=== PATIENT | male | born 1995 | race Caucasian/White ===

== ENCOUNTER 2021-12-04 09:50 | Emergency (ER) | payer OTHER ==
[~2021-12-04] VITALS: Ht 177.8 cm; Wt 95.7 kg
[2021-12-04 10:00] VITALS: BP 116/61
[2021-12-04] MEDS ORDERED: ORPHENADRINE CITRATE 60 MG/2 ML VIAL. IM ONE (10:15)
[2021-12-04] MEDS ORDERED: KETOROLAC 60 MG/2 ML VIAL. IM ONE (10:15)
--- NOTE | 2021-12-04 10:16 | PHYS DOC ---
Past History Past Medical History: No Pertinent History (BRAYAN LARA DO) Past Surgical History: No Surgical History (ANUJ BERNARDO APRN) Smoking: Non-smoker Alcohol Use: None Drug Use: None (BRAYAN LARA DO) General Adult EDM: Chief Complaint: BACK PAIN - NO INJURY HPI: HPI: Patient is a 26-year-old male who presents to the emergency department for right lower back pain that radiates into his hip. He reports that he has chronic back pain over the last 3 months. He states that he did not work out his legs yesterday at the gym but reports he did not lift heavy. He bent over to product picker his back when he started feeling the pain. He rates it 7 out of 10. He took ibuprofen. He denies any loss of bowel or bladder, saddle anesthesias, fever, nausea, vomiting, abdominal pain. (ANUJ BERNARDO APRN) Review of Systems: Review of Systems: GI: See HPI : See HPI Musculoskeletal: See HPI Neurologic:See HPI (ANUJ BERNARDO APRN) Allergies: Allergies: Allergies Coded Allergies Type Severity Reaction Last Updated Verified No Known Drug Allergies 12/04/21 No (ANUJ BERNARDO APRN) Physical Exam: PE: Constitutional: Well developed, well nourished, no acute distress, non-toxic appearance. [] HENT: Normocephalic, atraumatic, bilateral external ears normal, oropharynx moist, no oral exudates, nose normal. [] Eyes: PERRL. EOMI, conjunctiva normal, no discharge. [] Neck: Normal range of motion, no bony spinal tenderness, supple, no stridor. [] Cardiovascular:Heart rate regular rhythm, no murmur [] Lungs & Thorax: Bilateral breath sounds clear to auscultation [] Abdomen: Bowel sounds normal, soft, no tenderness, no masses, no pulsatile masses. [] Skin: Warm, dry, no erythema, no rash. [] Back: No bony spinal tenderness, normal range of motion, right lumbar paraspinal tenderness with palpation, no deformities, positive right straight leg raise Extremities: No tenderness, no cyanosis, no clubbing, ROM intact, no edema. [] Neurologic: Alert and oriented X 3, normal motor function, normal sensory function, no focal deficits noted. [] Psychologic: Affect normal, judgement normal, mood normal. [] (ANUJ BERNARDO APRN) Current Patient Data: Vital Signs: Vital Signs Date Time Temp Pulse Resp B/P (MAP) Pulse Ox O2 Delivery O2 Flow Rate FiO2 12/04/21 10:00 97.9 70 20 116/61 (79) 98 Room Air (ANUJ BERNARDO APRN) EKG: EKG: [] (ANUJ BERNARDO APRN) Radiology/Procedures: Radiology/Procedures: []REASON: r. lower back pain PROCEDURE: CT LUMBAR SPINE WO CONTRAST CT LUMBAR SPINE WO History: Right lower back pain. Technique: Noncontrast CT was performed of the lumbar spine. Multiplanar reconstructions were performed. Comparison: None Findings: The paraspinal soft tissues are unremarkable. There are 5 nonrib-bearing lumbar type vertebral bodies. There is normal alignment. No fracture or dislocation. T12-L5: No significant disc or facet disease. L5-S1: Disc height loss, mild degenerative endplate changes and suggestion of central disc extrusion directed superiorly, approximately 5 mm. Moderate right neural foraminal stenosis, mild left neural foraminal narrowing. Impression: 1. Degenerative disc disease at L5-S1 with possible central extrusion and moderate right neural foraminal narrowing. Potential for symptomatic compression of the transiting S1 nerve roots in the subarticular recesses and exiting right L5 nerve root. Correlate for symptoms of radiculopathy, consider MRI for further evaluation. 2. No acute osseous abnormality in the lumbar spine. Exposure: One or more of the following individualized dose reduction techniques were utilized for this examination: 1. Automated exposure control 2. Adjustment of the mA and/or kV according to patient size 3. Use of iterative reconstruction technique. Electronically signed by: Jerry Duran MD (12/04/2021 10:43 AM) [facility] DICTATED AND SIGNED BY: JERRY DURAN MD DATE: 12/04/21 1039 CC: ANUJ BERNARDO APRN; PCP,NO ~ (ANUJ BERNARDO APRN) Heart Score: C/O Chest Pain: N/A Risk Factors: Risk Factors: DM, Current or recent (<one month) smoker, HTN, HLP, family history of CAD, obesity. Risk Scores: Score 0 - 3: 2.5% MACE over next 6 weeks - Discharge Home Score 4 - 6: 20.3% MACE over next 6 weeks - Admit for Clinical Observation Score 7 - 10: 72.7% MACE over next 6 weeks - Early Invasive Strategies (ANUJ BERNARDO APRN) Course & Med Decision Making: Course & Med Decision Making Pertinent Labs and Imaging studies reviewed. (See chart for details) [] Patient resents the emergency department for right lower back pain that radiates into his hip. Patient has a positive right straight leg raise. Imaging was performed of his lumbar spine which showed no acute findings but did show symptoms consistent with radiculopathy.. Patient treated with Toradol and orphenadrine. He has no cauda equina symptoms. Patient is advised to take anti-inflammatory medications at home and he will be discharged home with a muscle relaxer. I discussed with patient all findings and diagnostic testing as well as the need to follow-up with PCP for further evaluation and treatment or return to the ER if any new or worsening symptoms. Strict return precautions were also discussed at length. Patient voiced understanding and agreement with the plan. Patient is hemodynamically stable at the time of disposition. (ANUJ BERNARDO APRN) Dragon Disclaimer: Dragon Disclaimer: This electronic medical record was generated, in whole or in part, using a voice recognition dictation system. (ANUJ BERNARDO APRN) Departure Departure: Impression: Primary Impression: Back pain Qualified Codes: M54.41 - Lumbago with sciatica, right side Disposition: 01 HOME / SELF CARE / HOMELESS Condition: GOOD Referrals: PCP,NO (PCP) Patient Instructions: Sciatica with Rehab-[facility] Additional Instructions: You were seen in the emergency department today for low back pain. CT scanning of your lumbar spine did not show any acute fractures but you do have findings consistent with sciatica. Treatment for this is anti-inflammatory medications and muscle relaxers. Please take ibuprofen or naproxen at home you are being discharged home with muscle relaxer. Caution taking this medication as it may cause sedation. Do not take when you need to be alert, driving a vehicle or alcohol. Follow-up with your primary care provider within 7 days. Return to the emergency department if you develop worsening of your back pain or any new injuries, loss of bowel or bladder, numbness or tingling in your groin or down your legs, inability to bear weight or walk. Dr. Anguiano with neurosurgery at [facility] Scripts Cyclobenzaprine Hcl (CYCLOBENZAPRINE HCL) 5 Mg Tablet 1 TAB PO TID for muscle spasm for 7 Days, #21 TAB 0 Refills Prov: ANUJ BERNARDO APRN 12/04/21 Attending Signature Attending Signature I have reviewed the PA/[employer]'s note and plan of care. I was available for consultation as needed during the patient's visit in the emergency department. I agree with the clinical impression, plan, and disposition. (BRAYAN LARA DO) ANUJ BERNARDO APRN Dec 04, 2021 10:16 BRAYAN LARA DO Dec 04, 2021 11:03
--- NOTE | 2021-12-04 10:45 | RAD ---
CT LUMBAR SPINE WO History: Right lower back pain. Technique: Noncontrast CT was performed of the lumbar spine. Multiplanar reconstructions were perform ed. Comparison: None Findings: The paraspinal soft tissues are unremarkable. There are 5 nonrib-bearing lumbar type vertebral bodies. There is normal alignment. No fracture or di slocation. T12-L5: No significant disc or facet disease. L5-S1: Disc height loss, mild degenerative endplate changes and suggestion of central disc extrusion directed superiorly, approximately 5 mm. Moderate right neural foraminal stenosis, mild left neural f oraminal narrowing. Impression: 1. Degenerative disc disease at L5-S1 with possible central extrusion and moderate right neural fora mike narrowing. Potential for symptomatic compression of the transiting S1 nerve roots in the subart icular recesses and exiting right L5 nerve root. Correlate for symptoms of radiculopathy, consider MR I for further evaluation. 2. No acute osseous abnormality in the lumbar spine. Exposure: One or more of the following individualized dose reduction techniques were utilized for thi s examination: 1. Automated exposure control 2. Adjustment of the mA and/or kV according to patient size 3. Use of iterative reconstruction technique. Electronically signed by: Rosalio Beth MD (12/04/2021 10:43 AM) [facility]
[2021-12-04] MEDS ORDERED: CYCL5TAB PO (10:51)
== END 2021-12-04 11:05 | disposition home or self-care (01) ==
LOC: ER 09:50
DX: M54.41 Lumbago with sciatica, right side (principal)
CPT/HCPCS: 72131; 96372; 99284; J1885; J2360